=== PATIENT | male | born 1985 | race Two or more races ===

== ENCOUNTER 2018-03-30 11:11 | Emergency (ER) | payer OTHER | END 2018-03-30 13:50 | disposition home or self-care (01) | LOC: M ED 11:11 | DX: S83.411A Sprain of medial collateral ligament of right knee, initial encounter (principal); W50.0XXA Accidental hit or strike by another person, initial encounter; Y92.89 Other specified places as the place of occurrence of the external cause | CPT/HCPCS: 73564 ==